=== PATIENT | male | born 1990 | race African-American/Black ===

== ENCOUNTER 2019-02-17 22:07 | Emergency (ER) | END 2019-02-18 00:50 | disposition left against medical advice (07) | LOC: ER 22:07 | DX: Z53.21 Procedure and treatment not carried out due to patient leaving prior to being seen by health care provider (principal) ==

== ENCOUNTER 2019-04-13 15:25 | Emergency (ER) | payer SELFPAY ==
[2019-04-13] MEDS ORDERED: OXYCODONE-ACETAMINOPHEN 5-325 MG TABLET PO ONE (18:23)
[2019-04-13] MEDS ORDERED: IBUPROFEN 800 MG TABLET PO ONE (18:24)
--- NOTE | 2019-04-13 18:27 | ER Document Report ---
ED General - General Chief Complaint: Back Pain Stated Complaint: BACK PAIN Time Seen by Provider: 04/13/19 17:42 Mode of Arrival: Ambulatory Information source: Patient TRAVEL OUTSIDE OF THE [place] IN LAST 30 DAYS: No - HPI Patient complains to provider of: Back and neck pain Onset: Other - Chronic Onset/Duration: Constant Quality of pain: Sharp Severity: Severe Pain Level: 4 Associated symptoms: None Exacerbated by: Movement, Walking Relieved by: Denies Similar symptoms previously: No Recently seen / treated by doctor: No Notes: 28-year-old -[place] male coming in today with chief complaint ongoing spine pain. Patient says that is getting harder and harder to get up out of bed and walk. He says it feels like his body is pulling him in one direction instead of going the direction he is trying to go. He has no brain injuries in the past. No trauma to his head or neck. He states his pain extends from the back of his head all the way down to his lumbar spine. No bladder or bowel dysfunction. No saddle anesthesia. No focal weakness. - Related Data Allergies/Adverse Reactions: No Known Allergies Allergy (Verified 04/13/19 15:29) Past Medical History - Social History Smoking Status: Smoker,Current Status Unk Family History: Reviewed & Not Pertinent Renal/ Medical History: Denies: Hx Peritoneal Dialysis Psychiatric Medical History: Reports: Hx Depression Physical Exam - Vital signs Vitals: Temp Pulse Resp BP Pulse Ox 97.9 F 100 18 128/69 H 99 04/13/19 15:35 04/13/19 15:35 04/13/19 15:35 04/13/19 15:35 04/13/19 15:35 - Notes Notes: General: Well-developed, well-nourished. In no acute distress. Non-toxic appearing. Cardiac: Well-perfused. Regular rate and rhythm. No murmurs, rubs, or gallops. Pulmonary: No respiratory distress. No cyanosis. Bilateral lung fiels are clear to auscultation. Abdominal: Non-distended. Non-rigid. Bowels sounds are present in all four quadrants. No guarding or rebound. HEENT: Head is atraumatic. Conjunctivae not reddened. No tearing. PERRL. EOMI. Orbits atraumatic. No periorbital swelling or erythema. Oropharynx is without erythema, swelling, or exudates. Neck: Supple. No adenopathy. No meningismus. Dermatologic: Warm with good turgor. No rash. Atraumatic. Chest: Atraumatic. No chest wall tenderness to palpation. Musculoskeletal: Midline tenderness from cervical through lumbar spine. No step-off Genitourinary: Examination deferred Neurologic: No gross neurologic deficits. Psychiatric: Normal mood. Course - Re-evaluation Re-evalutation: 04/13/19 18:26 Scan of head and C-spine. Plain films ordered. 04/13/19 19:56 Scans and x-rays all negative. Patient aware. We will refer him to [facility] operations specialist. We will send him home with pain medication and muscle relaxants. - Vital Signs Vital signs: Temp Pulse Resp BP Pulse Ox 97.9 F 100 18 128/69 H 99 04/13/19 15:35 04/13/19 15:35 04/13/19 15:35 04/13/19 15:35 04/13/19 15:35 Discharge - Discharge Clinical Impression: Gait disturbance Back pain Qualifiers: Back pain location: back pain in unspecified location Chronicity: chronic Back pain laterality: unspecified Qualified Code(s): M54.9 - Dorsalgia, unspecified; G89.29 - Other chronic pain Condition: Good Disposition: HOME, SELF-CARE Instructions: Ice Packs ([facility]), Low Back Pain ([facility]), Muscle Strain ([facility]), Oral Narcotic Medication ([facility]), Warm Packs ([facility]) Prescriptions: Hydrocodone/Acetaminophen [Quantico 5-325 mg Tablet] 1 tab PO Q6HP PRN #12 tablet PRN Reason: Tizanidine HCl [Zanaflex 4 Mg Tablet] 4 mg PO Q8HP PRN #12 tablet PRN Reason: Referrals: REAGAN PAK MD [ACTIVE STAFF] - Follow up as needed
--- NOTE | 2019-04-13 18:57 | RADIOLOGY REPORT (SQ) ---
EXAM DESCRIPTION: CT CERVICAL SPINE WITHOUT; CT HEAD WITHOUT COMPLETED DATE/TIME: 04/13/2019 6:42 pm REASON FOR STUDY: neck pain; balance issues COMPARISON: None. TECHNIQUE: Axial images acquired through the brain and cervical spine without intravenous contrast. Images reviewed with brain, subdural, lung, soft tissue and bone windows. Reconstructed coronal and sagittal MPR images reviewed. Images stored on PACS. All CT scanners at this facility use dose modulation, iterative reconstruction, and/or weight based d osing when appropriate to reduce radiation dose to as low as reasonably achievable (ALARA). [facility]: Dose Right [facility]: CareDose [facility]: Dose Right [facility]: Teradose 4D [facility]: Smart [employer] RADIATION DOSE: CT Rad equipment meets quality standard of care and radiation dose reduction techniq ues were employed. CTDIvol: 11.7 mGy. DLP: 275 mGy-cm.; CT Rad equipment meets quality standard of ca re and radiation dose reduction techniques were employed. CTDIvol: 53.2 mGy. DLP: 1124 mGy-cm. mGy. LIMITATIONS: None. FINDINGS: Brain Normal. No hemorrhage or mass or shift or hydrocephalus. No fracture. Orbits intact with clear par anasal sinuses. Cervical spine Normal alignment. No fracture. Soft tissues normal. IMPRESSION: 1. No acute intracranial abnormality. 2. No acute cervical spine abnormality. TECHNICAL DOCUMENTATION: JOB ID: [id number] Quality ID # [id number]: Final reports with documentation of one or more dose reduction techniques (e.g., Au tomated exposure control, adjustment of the mA and/or kV according to patient size, use of iterative reconstruction technique) 2010 [employer]- All Rights Reserved Reading location - IP/workstation name: [email or web address]
--- NOTE | 2019-04-13 18:58 | RADIOLOGY REPORT (SQ) ---
EXAM DESCRIPTION: CT CERVICAL SPINE WITHOUT; CT HEAD WITHOUT COMPLETED DATE/TIME: 04/13/2019 6:42 pm REASON FOR STUDY: neck pain; balance issues COMPARISON: None. TECHNIQUE: Axial images acquired through the brain and cervical spine without intravenous contrast. Images reviewed with brain, subdural, lung, soft tissue and bone windows. Reconstructed coronal and sagittal MPR images reviewed. Images stored on PACS. All CT scanners at this facility use dose modulation, iterative reconstruction, and/or weight based d osing when appropriate to reduce radiation dose to as low as reasonably achievable (ALARA). [facility]: Dose Right [facility]: CareDose [facility]: Dose Right [facility]: Teradose 4D [facility]: Smart [employer] RADIATION DOSE: CT Rad equipment meets quality standard of care and radiation dose reduction techniq ues were employed. CTDIvol: 11.7 mGy. DLP: 275 mGy-cm.; CT Rad equipment meets quality standard of ca re and radiation dose reduction techniques were employed. CTDIvol: 53.2 mGy. DLP: 1124 mGy-cm. mGy. LIMITATIONS: None. FINDINGS: Brain Normal. No hemorrhage or mass or shift or hydrocephalus. No fracture. Orbits intact with clear par anasal sinuses. Cervical spine Normal alignment. No fracture. Soft tissues normal. IMPRESSION: 1. No acute intracranial abnormality. 2. No acute cervical spine abnormality. TECHNICAL DOCUMENTATION: JOB ID: [id number] Quality ID # [id number]: Final reports with documentation of one or more dose reduction techniques (e.g., Au tomated exposure control, adjustment of the mA and/or kV according to patient size, use of iterative reconstruction technique) 2010 [employer]- All Rights Reserved Reading location - IP/workstation name: [email or web address]
--- NOTE | 2019-04-13 19:00 | RADIOLOGY REPORT (SQ) ---
EXAM DESCRIPTION: L SPINE WHOLE; T SPINE AP/LAT COMPLETED DATE/TIME: 04/13/2019 6:51 pm REASON FOR STUDY: pain COMPARISON: None. FINDINGS: Two view thoracic spine: Very slight curvature. No fracture. Soft tissues normal. No r ib fracture or pneumothorax. Five view lumbosacral spine: Congenital segmentation anomaly, L5 looks sacralized. Otherwise normal . No malalignment. Discs are preserved. No fracture. Posterior elements intact. TECHNICAL DOCUMENTATION: JOB ID: [id number] Reading location - IP/workstation name: [email or web address]
--- NOTE | 2019-04-13 19:00 | RADIOLOGY REPORT (SQ) ---
EXAM DESCRIPTION: L SPINE WHOLE; T SPINE AP/LAT COMPLETED DATE/TIME: 04/13/2019 6:51 pm REASON FOR STUDY: pain COMPARISON: None. FINDINGS: Two view thoracic spine: Very slight curvature. No fracture. Soft tissues normal. No r ib fracture or pneumothorax. Five view lumbosacral spine: Congenital segmentation anomaly, L5 looks sacralized. Otherwise normal . No malalignment. Discs are preserved. No fracture. Posterior elements intact. TECHNICAL DOCUMENTATION: JOB ID: [id number] Reading location - IP/workstation name: [email or web address]
[2019-04-13 21:03] VITALS: BP 133/84
== END 2019-04-13 21:03 | disposition home or self-care (01) ==
LOC: ER 15:25
DX: R26.9 Unspecified abnormalities of gait and mobility (principal); M54.9 Dorsalgia, unspecified; G89.29 Other chronic pain; M54.2 Cervicalgia; F17.200 Nicotine dependence, unspecified, uncomplicated
CPT/HCPCS: 70450; 72070; 72110; 72125; 99284